=== PATIENT | male | born 1980 | race Caucasian/White ===

== ENCOUNTER 2020-03-19 06:04 | Emergency (ER) | payer SELFPAY ==
[2020-03-19 06:19] VITALS: BP 165/93; PULSE 65; RESP 16; TEMP 36.9; O2SAT 96
--- NOTE | 2020-03-19 06:28 | PC.NURSE ---
pt states he drinks a 12 pk of beer daily. also smokes weed daily.
--- NOTE | 2020-03-19 06:33 | ED.DENTAL ---
HPI - Dental/Oral General Chief complaint: Dental/Oral Stated complaint: facial swelling right side Source: patient Mode of arrival: ambulatory Limitations: no limitations History of Present Illness HPI Narrative: pt has been having dental facial pain for a few days. worse today Onset (ago): day(s) Duration: constant Severity: severe Relieving factors: nothing Context: history of dental caries and poor dental care Treatment prior to arrival: topical analgesic and oral analgesic Related Data Allergies Allergy/AdvReac Type Severity Reaction Status Date / Time No Known Allergies Allergy Verified 03/19/20 06:17 Review of Systems Review of Systems: All systems reviewed & are unremarkable except as noted in HPI and below PMFSH Social History Social History (Updated 03/19/20 @ 06:38 by Tatiana Mcgill MD) Smoking status: Current every day smoker Alcohol intake: current Substance use: current Substance use type: marijuana Gender identity (if verbalized by the patient): Male Exam Const: General: no acute distress and alert Orientation/consciousness: patient oriented x3 HENMT: Face and sinus: abnormal facial exam (right facial swelling) Teeth and gingiva: abnormal tooth and associated gingiva (broken and decayed teeth, abscess on right upper teeth line. ) Eyes: Pupils: Equal, round and reactive pupils present Chest: Chest palpation & inspection: normal inspection of the chest Resp: Effort & Inspection: normal respiratory effort Skin: General skin exam: normal color Rashes: no rashes Neuro: General: patient oriented x3 and moves all extremities Psych: Appearance: grossly normal Mental Status: mental status grossly normal Thought content: Yes Normal thought content present Course Vital Signs Vital signs: Vital Signs Temperature 36.9 C 03/19/20 06:19 Pulse Rate 65 03/19/20 06:19 Respiratory Rate 16 03/19/20 06:19 Blood Pressure 165/93 H 03/19/20 06:19 Pulse Oximetry 96 03/19/20 06:19 Temperature 36.9 C 03/19/20 06:19 Pulse Rate 65 03/19/20 06:19 Respiratory Rate 16 03/19/20 06:19 Blood Pressure 165/93 H 03/19/20 06:19 Pulse Oximetry 96 03/19/20 06:19 MDM - Dental/Oral Differential Diagnosis Differential diagnosis: Likely dental caries, toothache and dental abscess Critical Care Time Critical Care Time Critical Care Time: No Discharge Plan Discharge Clinical Impression: Dental abscess Patient Disposition: Home, Self-Care Condition: Stable Instructions: Antibiotic Form, Dental Abscess (ED) Prescriptions: New amoxicillin 500 mg capsule 500 mg PO TID Qty: 30 RF: 0 Follow-up/Referrals: UNKNOWN,DOCTOR [Primary Care Provider] - Stand Alone Forms: Work/School Release IP Time of Disposition: 06:34
== END 2020-03-19 06:40 | disposition home or self-care (01) ==
PROVIDERS: Emergency Provider Emergency Medicine
DX: K04.7 Periapical abscess without sinus (principal)
CPT/HCPCS: 99283